=== PATIENT | female | born 1965 | race American Indian/Alaskan Native ===

== ENCOUNTER 2017-07-03 18:45 | Emergency (ER) | payer BC, OTHER ==
[2017-07-03] MEDS ORDERED: ASPIRIN PO ONE (20:46)
[2017-07-03 21:16] LABS: BUN/Creatinine Ratio 14; Blood Urea Nitrogen 10 mg/dL (7-17); Calcium 9.2 mg/dL (8.4-10.2); Hemolysis Index 5
[2017-07-03 21:20] LABS: Basophils % (Auto) 0.8 % (0.0-1.8); Eosinophils % (Auto) 0.2 % (0.0-4.3); Hematocrit 41.6 % (30.3-42.9); Hemoglobin 13.8 gm/dl (10.1-14.3); Lymphocytes % (Auto) 24.1 % (13.4-35.0); Mean Corpuscular HGB Conc 33 % (30-34); Mean Corpuscular Hemoglobin 28 pg (28-32); Mean Corpuscular Volume 86 fl (79-97); Monocytes # (Auto) 0.4 K/mm3 (0.0-0.8); Monocytes % (Auto) 10.8 % (0.0-7.3); Platelet Count 135 K/mm3 (140-440); Red Blood Count 4.87 M/mm3 (3.65-5.03); Red Cell Distribution Width 14.8 % (13.2-15.2)
[2017-07-04] MEDS ORDERED: REGLAN IV ONE (00:51)
[2017-07-04] MEDS ORDERED: BENADRYL IV ONE (00:52)
[2017-07-04] MEDS ORDERED: LIDOCAINE VISCOUS 2% PO ONE (00:52)
[2017-07-04] MEDS ORDERED: ALUM-MAG HYDROX-SIMETH 200-200-20MG/5ML PO ONE (00:52)
[2017-07-04] MEDS ORDERED: REGLAN PO ONE (01:13)
[2017-07-04] MEDS ORDERED: BENADRYL PO ONE (01:13)
[2017-07-04] MEDS ORDERED: DECADRON PO ONE (01:13)
[2017-07-04] MEDS ORDERED: MOTRIN PO ONE (01:36)
--- NOTE | 2017-07-04 01:57 | Emergency Department Report ---
ED General Adult HPI - General Chief complaint: Chest Pain Stated complaint: HEADACHE/HEARTBURN Time Seen by Provider: 07/04/17 00:31 Source: patient Mode of arrival: Ambulatory Limitations: No Limitations - History of Present Illness Initial comments: Patient is a 51-year-old female, past medical history who presents with headache and epigastric abdominal pain. Patient works as a psych nurse at outside hospital. She states that she works with patients to smoke and while she was exposed to smoke she started having epigastric pain and a headache. She states that her headaches and 8 out 10 of them makes it better's being around smoke makes it worse. She also states that she has some epigastric pain she denies having any chest pain she states that she often gets this when she is exposed to smoke. Patient denies having any nausea or vomiting. She does not smoke or drink. She denies any fever or neck pain. Severity scale (0 -10): 7 - Related Data Allergies Allergy/AdvReac Type Severity Reaction Status Date / Time acetaminophen [From Percocet] Allergy Shortness Verified 07/03/17 19:32 of Breath oxycodone [From Percocet] Allergy Shortness Verified 07/03/17 19:32 of Breath aspirin AdvReac Nausea Verified 07/03/17 19:31 ED Review of Systems ROS: Stated complaint: HEADACHE/HEARTBURN Other details as noted in HPI Constitutional: denies: chills, fever Eyes: denies: eye pain, eye discharge, vision change ENT: denies: ear pain, throat pain Respiratory: denies: cough, shortness of breath, wheezing Cardiovascular: denies: chest pain, palpitations Endocrine: no symptoms reported Gastrointestinal: denies: abdominal pain, nausea, diarrhea Genitourinary: denies: urgency, dysuria, discharge Musculoskeletal: denies: back pain, joint swelling, arthralgia Skin: denies: rash, lesions Neurological: denies: headache, weakness, paresthesias Psychiatric: denies: anxiety, depression Hematological/Lymphatic: denies: easy bleeding, easy bruising ED Past Medical Hx - Past Medical History Previous Medical History?: No - Surgical History Past Surgical History?: No - Social History Smoking Status: Never Smoker Substance Use Type: None ED Physical Exam - General Limitations: No Limitations General appearance: alert, in no apparent distress - Head Head exam: Present: atraumatic, normocephalic - Eye Eye exam: Present: normal appearance - ENT ENT exam: Present: mucous membranes moist - Neck Neck exam: Present: normal inspection - Respiratory Respiratory exam: Present: normal lung sounds bilaterally. Absent: respiratory distress - Cardiovascular Cardiovascular Exam: Present: regular rate, normal rhythm. Absent: systolic murmur, diastolic murmur, rubs, gallop - GI/Abdominal GI/Abdominal exam: Present: soft, normal bowel sounds - Extremities Exam Extremities exam: Present: normal inspection - Back Exam Back exam: Present: normal inspection - Neurological Exam Neurological exam: Present: alert, oriented X3 - Psychiatric Psychiatric exam: Present: normal affect, normal mood - Skin Skin exam: Present: warm, dry, intact, normal color. Absent: rash ED Course Vital Signs 07/03/17 07/04/17 19:22 00:48 Temperature 97.2 F L Pulse Rate 97 H Respiratory 16 16 Rate Blood Pressure 140/92 O2 Sat by Pulse 98 99 Oximetry ED Medical Decision Making - Lab Data Result diagrams: 07/03/17 20:48 07/03/17 20:48 Lab Results 07/03/17 07/03/17 07/03/17 Range/Units 20:48 20:48 23:40 WBC 4.2 L (4.5-11.0) K/mm3 RBC 4.87 (3.65-5.03) M/mm3 Hgb 13.8 (10.1-14.3) gm/dl Hct 41.6 (30.3-42.9) % MCV 86 (79-97) fl MCH 28 (28-32) pg MCHC 33 (30-34) % RDW 14.8 (13.2-15.2) % Plt Count 135 L (140-440) K/mm3 Lymph % (Auto) 24.1 (13.4-35.0) % [place] % (Auto) 10.8 H (0.0-7.3) % Eos % (Auto) 0.2 (0.0-4.3) % Baso % (Auto) 0.8 (0.0-1.8) % Lymph # 1.0 L (1.2-5.4) K/mm3 [place] # 0.4 (0.0-0.8) K/mm3 Eos # 0.0 (0.0-0.4) K/mm3 Baso # 0.0 (0.0-0.1) K/mm3 Seg Neutrophils % 64.1 (40.0-70.0) % Seg Neutrophils # 2.7 (1.8-7.7) K/mm3 Sodium 141 (137-145) mmol/L Potassium 4.4 (3.6-5.0) mmol/L Chloride 102.9 (98-107) mmol/L Carbon Dioxide 26 (22-30) mmol/L Anion Gap 17 mmol/L BUN 10 (7-17) mg/dL Creatinine 0.7 (0.7-1.2) mg/dL Estimated GFR > 60 ml/min BUN/Creatinine Ratio 14 % Glucose 103 H (65-100) mg/dL Calcium 9.2 (8.4-10.2) mg/dL Troponin T < 0.010 < 0.010 (0.00-0.029) ng/mL - EKG Data -: EKG Interpreted by Wy - EKG Data 07/04/17 02:33 EKG shows normal sinus rhythm no ST segment elevation or T-wave inversion. - Medical Decision Making Chief medical diagnosis: Headache secondary to smoke exposure Differential medical diagnosis: Tension headache, electrolyte abnormality, non- STEMI, arrhythmia CBC, BMP, troponin, EKG I'll give patient oral pain medication Patient's blood work is unremarkable also and patient home with work note. Cells. Patient patient agrees to plan verbal discharge instructions are given. Critical care attestation.: If time is entered above; I have spent that time in minutes in the direct care of this critically ill patient, excluding procedure time. ED Disposition Clinical Impression: Tobacco smoke exposure, Epigastric abdominal pain Headache Qualifiers: Headache type: unspecified Headache chronicity pattern: unspecified pattern Intractability: not intractable Qualified Code(s): R51 - Headache Disposition: DC-01 TO HOME OR SELFCARE Is pt being admited?: No Does the pt Need Aspirin: No Condition: Stable Instructions: Smoke Inhalation (ED) Referrals: PAPO MCCLAIN MD [Staff Physician] - 3-5 Days Forms: Work/School Release Form(ED)
[2017-07-04 02:42] VITALS: BP 107/65
--- NOTE | 2017-07-04 03:04 | XRay Report ---
FINAL REPORT EXAM: XR ELBOW 2V LT HISTORY: elbow pain TECHNIQUE: AP and lateral views of the left elbow were submitted. FINDINGS: There are no skeletal or soft tissue abnormalities. IMPRESSION: Normal exam.
== END 2017-07-04 03:46 | disposition home or self-care (01) ==
LOC: ED 18:45
DX: R10.13 Epigastric pain (principal); R51 Headache; Z77.22 Contact with and (suspected) exposure to environmental tobacco smoke (acute) (chronic)
CPT/HCPCS: 36415; 80048; 84484; 85025

== ENCOUNTER 2018-06-24 09:30 | Emergency (ER) | payer BC, OTHER ==
[2018-06-24 09:37] VITALS: BP 127/83
[2018-06-24 10:09] LABS: Hematocrit 38.2 % (30.3-42.9); Hemoglobin 12.9 gm/dl (10.1-14.3); Mean Corpuscular HGB Conc 34 % (30-34); Mean Corpuscular Volume 87 fl (79-97); Platelet Count 132 K/mm3 (140-440); Red Blood Count 4.38 M/mm3 (3.65-5.03); Red Cell Distribution Width 14.3 % (13.2-15.2)
[2018-06-24 10:29] LABS: BUN/Creatinine Ratio 14; Blood Urea Nitrogen 11 mg/dL (7-17); Calcium 9.4 mg/dL (8.4-10.2); Hemolysis Index 27
--- NOTE | 2018-06-24 11:01 | Emergency Department Report ---
ED Female HPI - General Chief complaint: Vaginal Bleeding Stated complaint: VAGINAL BLEEDING Time Seen by Provider: 06/24/18 10:12 Source: patient Mode of arrival: Ambulatory Limitations: No Limitations - History of Present Illness Initial comments: She is a 52-year-old female comes to the ER today with dysfunctional uterine bleeding. She states that she had her last menstrual cycle on the 15th of this month and is now bleeding again. Patient states she also had a recent salpingectomy to see if her tubes are open because she's been trying to get and cannot. Patient denies abdominal pain. She denies fever. She denies dysuria. Patient is not tachycardic. She is not hypotensive. She has no fever. She normally follows with kirstie Chavez. Complaint: vaginal bleeding -: Gradual, days(s) - Related Data Previous Rx's Medication Instructions Recorded Last Taken Type Esomeprazole Magnesium [Nexium] 20 mg PO DAILY #30 capsule. 07/04/17 Unknown Rx Ibuprofen [Motrin] 800 mg PO Q8HR PRN #30 tablet 07/04/17 Unknown Rx Allergies Allergy/AdvReac Type Severity Reaction Status Date / Time acetaminophen [From Percocet] Allergy Shortness Verified 07/03/17 19:32 of Breath oxycodone [From Percocet] Allergy Shortness Verified 07/03/17 19:32 of Breath aspirin AdvReac Nausea Verified 07/03/17 19:31 ED Review of Systems ROS: Stated complaint: VAGINAL BLEEDING Other details as noted in HPI Comment: All other systems reviewed and negative ED Past Medical Hx - Past Medical History Previous Medical History?: No - Surgical History Past Surgical History?: No - Family History Family history: no significant - Social History Smoking Status: Never Smoker Substance Use Type: None - Medications Home Medications: Home Medications Medication Instructions Recorded Confirmed Last Taken Type Esomeprazole Magnesium [Nexium] 20 mg PO DAILY #30 capsule. 07/04/17 Unknown Rx Ibuprofen [Motrin] 800 mg PO Q8HR PRN #30 tablet 07/04/17 Unknown Rx ED Physical Exam - General Limitations: No Limitations General appearance: alert, in no apparent distress - Head Head exam: Present: atraumatic, normocephalic - Eye Eye exam: Present: normal appearance, PERRL - ENT ENT exam: Present: mucous membranes moist - Neck Neck exam: Present: normal inspection - Respiratory Respiratory exam: Present: normal lung sounds bilaterally - Cardiovascular Cardiovascular Exam: Present: regular rate - GI/Abdominal GI/Abdominal exam: Present: soft, normal bowel sounds - Rectal Rectal exam: Present: deferred - Extremities Exam Extremities exam: Present: normal inspection, full ROM - Back Exam Back exam: Present: normal inspection, full ROM - Neurological Exam Neurological exam: Present: alert, oriented X3, CN II-XII intact - Psychiatric Psychiatric exam: Present: normal affect, normal mood - Skin Skin exam: Present: warm, dry, intact ED Course Vital Signs 06/24/18 06/24/18 09:35 10:18 Temperature 98.3 F Pulse Rate 62 Respiratory 16 16 Rate Blood Pressure 127/83 O2 Sat by Pulse 100 Oximetry ED Medical Decision Making - Lab Data Result diagrams: 06/24/18 09:54 06/24/18 09:54 - Medical Decision Making Vital Signs 06/24/18 06/24/18 09:35 10:18 Temperature 98.3 F Pulse Rate 62 Respiratory 16 16 Rate Blood Pressure 127/83 O2 Sat by Pulse 100 Oximetry Labs 06/24/18 06/24/18 06/24/18 09:54 09:54 10:52 WBC 3.6 L RBC 4.38 Hgb 12.9 Hct 38.2 MCV 87 MCH 30 MCHC 34 RDW 14.3 Plt Count 132 L Sodium 141 Potassium 4.4 Chloride 102.1 Carbon Dioxide 28 Anion Gap 15 BUN 11 Creatinine 0.8 Estimated GFR > 60 BUN/Creatinine Ratio 14 Glucose 99 Calcium 9.4 Urine Color Yellow Urine Turbidity Clear Urine pH 7.0 Ur Specific [place] 1.012 Urine Protein <15 mg/dl Urine Glucose (UA) Neg Urine Ketones Neg Urine Blood Lg Urine Nitrite Neg Urine Bilirubin Neg Urine Urobilinogen < 2.0 Ur Leukocyte Esterase Neg Urine WBC (Auto) 3.0 Urine RBC (Auto) > 182.0 U Epithel Cells (Auto) 1.0 Urine HCG, Qual Negative LABS NOTED DISCUSSED MENOPAUSE WITH PT. ALSO DISCUSSED DUB/ HORMONE TESTS ETC. H/H STABLE. PLT STABLE. VSS. NO PAIN. NO DYSURIA. WILL DC HOME WITH OBGYN FOLLOW UP Critical care attestation.: If time is entered above; I have spent that time in minutes in the direct care of this critically ill patient, excluding procedure time. ED Disposition Clinical Impression: DUB (dysfunctional uterine bleeding), Thrombocytopenia Disposition: - TO HOME OR SELFCARE Is pt being admited?: No Does the pt Need Aspirin: No Condition: Stable Instructions: Dysfunctional Uterine Bleeding (ED) Additional Instructions: DIET TOLERATED ACTIVITY TOLERATED MOTRIN OR TYLENOL FOR PAIN FOLLOW UP WITH OBGYN, WHO ARE SPECIALISTS IN THIS AREA AND CAN HELP YOU DETERMINE THE CAUSE OF THE BLEEDING AND ADDRESS YOUR OTHER CONCERNS. Referrals: KHADIJAH GUEVARA MD [Primary Care Provider] - 3-5 Days LIVAN TYSON MD [Staff Physician] - 3-5 Days CINDY BOX CNM [Staff Physician] - 3-5 Days LEONARDO ROCHA MD [Staff Physician] - 3-5 Days Time of Disposition: 11:25
[2018-06-24 11:50] LABS: Bilirubin,Urine NEG (Negative); Blood,Urine LG (Negative); Color,Urine Yellow (Yellow); Protein,Urine <15 mg/dL mg/dL (Negative); Urobilinogen,Urine < 2.0 mg/dL (<2.0)
[2018-06-24 11:54] LABS: HCG Qualitative,Urine Negative (Negative); RBC,Urine > 182.0 /HPF (0.0-6.0)
== END 2018-06-24 12:05 | disposition home or self-care (01) ==
LOC: ED 09:30
DX: D69.6 Thrombocytopenia, unspecified (principal); N93.8 Other specified abnormal uterine and vaginal bleeding; Z88.6 Allergy status to analgesic agent
CPT/HCPCS: 36415; 80048; 81001; 81025; 85027; 99283